=== PATIENT | male | born 2000 | race African-American/Black ===

== ENCOUNTER 2022-11-28 20:34 | Emergency (ER) | payer OTHER ==
[~2022-11-28] VITALS: Ht 177.8 cm; Wt 103.9 kg
[2022-11-28] MEDS ORDERED: NALO1DIS2 IM (21:06)
[2022-11-28 23:37] VITALS: BP 121/74; TEMP 97.7; O2SAT 98
== END 2022-11-28 23:38 | disposition home or self-care (01) ==
LOC: ER 20:38
DX: T40.601A Poisoning by unspecified narcotics, accidental (unintentional), initial encounter (principal); Z79.899 Other long term (current) drug therapy; Y92.89 Other specified places as the place of occurrence of the external cause

== ENCOUNTER 2024-01-09 08:43 | Emergency (ER) | payer OTHER ==
[~2024-01-09] VITALS: Ht 180.3 cm; Wt 99.8 kg
[~2024-01-09 08:43] MED LIST: NALO1DIS2 IM
[2024-01-09 08:56] VITALS: BP 130/70; TEMP 98.3
[2024-01-09 10:25] VITALS: O2SAT 98
== END 2024-01-09 10:26 | disposition home or self-care (01) ==
LOC: ER 08:47
DX: R04.2 Hemoptysis (principal); R05.9 Cough, unspecified; F31.9 Bipolar disorder, unspecified; F41.9 Anxiety disorder, unspecified
CPT/HCPCS: 71045-TC